=== PATIENT | male | born 1970 | race Hispanic/Latino ===

== ENCOUNTER 2019-05-11 10:23 | Emergency (ER) | payer SELFPAY ==
[2019-05-11 11:30] LABS: #Eosinphils 0.1 thou/uL (0.0-0.7); #Lymphocytes 0.9 thou/uL (1.20-3.40); #Monocytes 0.3 thou/uL (0.11-0.59); #Neutrophils 1.7 thou/uL (1.40-6.50); %Basophils 1.5 % (0.0-1.0); %Eosinophils 3.5 % (0.0-10.0); %Lymphocytes 30.5 % (21.0-51.0); %Neutrophils 53.5 % (42.0-75.0); Hemoglobin 10.9 g/dL (14.0-18.0); Mean Corpuscular HGB CONC 33.3 g/dL (32.0-36.0); Mean Corpuscular Hemoglobin 31.6 pg (27.0-31.0); Mean Corpuscular Volume 94.9 fL (78.0-98.0); Mean Platelet Volume 10.5 fL (7.4-10.4); Platelet Count 58 thou/uL (130-400); RBC Distribution Width 15.4 % (11.5-14.5); Red Blood Cell (RBC) Count 3.44 mill/uL (4.70-6.10); White Blood Cell (WBC) Count 3.1 thou/uL (4.8-10.8)
--- NOTE | 2019-05-11 11:35 | RAD ---
Exam:3 views left foot HISTORY: Pain. Injury. Sores on the bottom of the feet. COMPARISON: None FINDINGS: There is atherosclerosis. Lisfranc alignment is maintained. Joint spaces are preserved. There are no destructive or erosive changes in the osseous structures. No evidence of subcutaneous emphysema. There is spurring of the calcaneus at the plantar aponeurosis insertion site. IMPRESSION: Unremarkable left foot 3 views
--- NOTE | 2019-05-11 11:35 | RAD ---
3 views right foot: 05/11/2019 COMPARISON: None HISTORY: Bilateral lower extremity swelling FINDINGS: There is atherosclerotic calcification within the mid foot and forefoot regions. There is e nthesophyte formation at the origin of the plantar aponeurosis and insertion of the Achilles tendon. No displaced fracture or evidence of dislocation is apparent. A pes planus deformity is noted. No focal area of osseous destruction seen. If there is concern for osteomyelitis, MRI is suggested. IMPRESSION: Atherosclerotic disease. No acute fracture or dislocation.
[2019-05-11 11:37] LABS: ALT (SGPT) 18 U/L (8-55); AST (SGOT) 38 U/L (5-34); Albumin 3.4 g/dL (3.5-5.0); Alkaline Phosphatase 83 U/L (40-110); Anion Gap 15 mmol/L (10-20); BUN (Urea Nitrogen) 9 mg/dL (8.9-20.6); Bilirubin, Total 1.4 mg/dL (0.2-1.2); Calc. Creatinine Clearance 0 mL/min (70-130); Calcium 8.6 mg/dL (7.8-10.44); Carbon Dioxide 22 mmol/L (22-29); Chloride 107 mmol/L (98-107); Estimated GFR-MDRD Greater than 90; Globulin 3.4 g/dL (2.4-3.5); Glucose 141 mg/dL (70-105); Potassium 4.1 mmol/L (3.5-5.1); Protein, Total 6.8 g/dL (6.0-8.3); Sodium 140 mmol/L (136-145)
[2019-05-11 11:38] LABS: CK (CPK) 84 U/L (30-200); CRP (Inflammatory) Less than 0.50 mg/dL (= or < 0.5)
[2019-05-11 11:49] LABS: Bilirubin Negative (Negative); Blood, Urine Negative (Negative); Clarity Clear (Clear); Glucose, Urine (Dipstick) Negative (Negative); Leukocyte Negative (Negative); Nitrite Negative (Negative); Protein, Urine (Dipstick) Negative (Neg-Trace); Urobilinogen 0.2 mg/dL (Less than 2)
== END 2019-05-11 12:20 | disposition home or self-care (01) ==
LOC: NAV ERS 10:23
DX: I87.2 Venous insufficiency (chronic) (peripheral) (principal); E11.9 Type 2 diabetes mellitus without complications; F32.9 Major depressive disorder, single episode, unspecified; F17.200 Nicotine dependence, unspecified, uncomplicated; Z79.84 Long term (current) use of oral hypoglycemic drugs
CPT/HCPCS: 36416; 80053; 81003; 82550; 83880; 84484; 85025; 85652; 86140; 93005

== ENCOUNTER 2019-12-23 11:07 | Emergency (ER) | payer OTHER, SELFPAY ==
[~2019-12-23 11:07] MED LIST: Iopamidol 370 76% 100 ML VIAL ONE
[2019-12-23] MEDS ORDERED: Pantoprazole 40 MG VIAL ONE (11:54)
[2019-12-23] MEDS ORDERED: Acetaminophen 500 MG TAB ONE (11:54)
[2019-12-23] MEDS ORDERED: Sodium Chloride 0.9% 1,000 ML ONE ×2 (12:05→14:29)
[2019-12-23 12:13] LABS: ALT (SGPT) 29 U/L (8-55); AST (SGOT) 59 U/L (5-34); Albumin 3.2 g/dL (3.5-5.0); Alkaline Phosphatase 115 U/L (40-110); Anion Gap 13 mmol/L (10-20); BUN (Urea Nitrogen) 8 mg/dL (8.9-20.6); Bilirubin, Total 2.3 mg/dL (0.2-1.2); Calc. Creatinine Clearance 0 mL/min (70-130); Calcium 8.3 mg/dL (7.8-10.44); Carbon Dioxide 23 mmol/L (22-29); Chloride 97 mmol/L (98-107); Estimated GFR-MDRD 76; Globulin 4.2 g/dL (2.4-3.5); Glucose 222 mg/dL (70-105); Lipase 38 U/L (8-78); Protein, Total 7.4 g/dL (6.0-8.3); Sodium 129 mmol/L (136-145)
[2019-12-23] MEDS ORDERED: Cefepime 2 GM VIAL ONE (12:15)
[2019-12-23] MEDS ORDERED: Sodium Chloride 0.9% 100 ML ONE (12:15)
--- NOTE | 2019-12-23 12:16 | RAD ---
Exam: Chest one view HISTORY:Cough Comparison: None FINDINGS: Cardiac silhouette: Normal Aorta: Unremarkable Pulmonary vessels: Normal Costophrenic angles: Clear LUNGS: No masses or consolidation. Pneumothorax: None Osseous abnormalities: None IMPRESSION: No acute cardiopulmonary process.
[2019-12-23 12:24] LABS: INR-International Normal Ratio 1.6; PTT 41.8 sec (22.9-36.1); Prothrombin Time 18.8 sec (12.0-14.7)
[2019-12-23 12:38] LABS: Hemoglobin 12.8 g/dL (14.0-18.0); Mean Corpuscular HGB CONC 31.5 g/dL (32.0-36.0); Mean Corpuscular Hemoglobin 31.4 pg (27.0-31.0); Mean Corpuscular Volume 99.6 fL (78.0-98.0); Mean Platelet Volume 13.7 fL (7.4-10.4); Platelet Count 94 thou/uL (130-400); RBC Distribution Width 12.7 % (11.5-14.5); Red Blood Cell (RBC) Count 4.06 mill/uL (4.70-6.10); White Blood Cell (WBC) Count 11.5 thou/uL (4.8-10.8)
[2019-12-23 12:40] LABS: Band 3 % (5-11); Lymphocytes 13 % (21-51); MDiff Complete? YES; Monocytes 18 % (0-10); Neutrophil 66 % (42-75); Platelet Morphology Comment Appears Decreased
--- NOTE | 2019-12-23 13:54 | CT ---
EXAM: CT ABDOMEN AND PELVIS HISTORY: Abdominal pain COMPARISON: None. Procedure: Multiple contiguous axial images were obtained and a CT of the abdomen and pelvis with IV contrast. C oronal reformats were performed. FINDINGS: Lower Chest: within normal limits. Vessels: Normal caliber aorta Heart: Normal heart size Abdomen: Portal vein:Patent Gallbladder: CT evidence of cholelithiasis without definite evidence of cholecystitis Liver: Mild nodularity of the liver. Minimal recanalization of the umbilical vein. Correlate for cirr hosis. Pancreas: within normal limits. Spleen: No abnormal enhancement. Spleen measures 17.8 cm. Adrenals: within normal limits. Kidneys: Indeterminate 1.2 x 1.2 cm hypodense mass in the upper pole of the right kidney. Indetermina te 0.9 x 0.7 cm mass in the lower pole the left kidney. Right renal mass has an attenuation coefficient of 40 Hounsfield units. The left renal mass has attenuation coefficient of 23. Peritoneum: No ascites or free air, no fluid collection. Bowel: Limited evaluation due to the lack of oral contrast administration. No evidence of bowel obstr uction. Ileocecal junction is unremarkable. Normal caliber appendix. Scattered fecal material in a nondistended, nondilated colon. Mesentery and Retroperitoneum: No enlarged mesenteric or retroperitoneal lymph nodes. Abdominal Wall: within normal limits. Pelvis: Reproductive Organs: Reproductive organs are unremarkable. Pelvis: No mass, lymphadenopathy, free air or free fluid. Bladder: within normal limits. Bones: within normal limits. IMPRESSION: 1. No acute abnormality in the abdomen or pelvis 2. No evidence of embolic infection 3. Normal caliber appendix 4. Cholelithiasis, without evidence of cholecystitis. There is continued concern, consider right uppe r quadrant ultrasound 5. Cirrhotic changes of the liver. Splenomegaly. 6. Indeterminate left and right renal lesions can be further assessed with nonemergent ultrasound
[2019-12-23 16:07] LABS: Bilirubin Negative (Negative); Blood, Urine Negative (Negative); Glucose, Urine (Dipstick) 100 mg/dL (Negative); Leukocyte Small (Negative); Nitrite Negative (Negative); Protein, Urine (Dipstick) Negative (Neg-Trace); Urobilinogen > or = 8.0 mg/dL (Less than 2)
[2019-12-23 16:13] LABS: Clarity SL HAZY (Clear)
[2019-12-23 16:32] LABS: Bacteria/HPF 4+ HPF (None Seen); RBC/HPF 0-3 HPF (0-3); Squamous Epithelial 0-3 HPF (0-3); WBC/HPF 0-3 HPF (0-3)
[2019-12-24 10:57] LABS: SARS-CoV-2 MS2 Positive; SARS-CoV-2 N Gene Negative; SARS-CoV-2 S Gene Negative; SARS-CoV-2 orf1ab Negative
== END 2019-12-23 16:30 | disposition short-term general hospital (02) ==
LOC: MERGE 11:07 → NAV ERS 11:07
DX: K80.20 Calculus of gallbladder without cholecystitis without obstruction (principal); K92.0 Hematemesis; R50.9 Fever, unspecified; R05 Cough; E87.1 Hypo-osmolality and hyponatremia; Z20.828 Contact with and (suspected) exposure to other viral communicable diseases; E11.9 Type 2 diabetes mellitus without complications; F32.9 Major depressive disorder, single episode, unspecified; K74.60 Unspecified cirrhosis of liver; Z87.891 Personal history of nicotine dependence; Z79.84 Long term (current) use of oral hypoglycemic drugs
CPT/HCPCS: 71045; 74177; 80053; 81003; 81015; 82274; 83605; 83690; 83880; 84484; 85025; 85610; 85730; 87040; 87635; 93005; 96365; 96375; C9113; J0692; J3490; J7050; Q9967; U0003